=== PATIENT | male | born 1950 | race Caucasian/White ===

== ENCOUNTER 2023-01-24 06:54 | Day surgery (SDC) | payer MEDICARE ==
[2023-01-24] VITALS (16 sets, daily range): BP systolic 113–194; BP diastolic 63–78
[~2023-01-24] VITALS: Ht 180.3 cm; Wt 96.8 kg
[~2023-01-24 06:54] MED LIST: MULVITA PO; Norco 5-325 Ta1 EACH PO; OMEP20ER PO; TAMS.4ER PO
--- NOTE | 2023-01-24 07:44 | NUR ---
Ambulatory in Day Surgery. History, Chart, Medications and Allergies reviewed before start of procedure. Lungs clear T/O to Auscultation. Patient confirms NPO status and agrees with scheduled surgery. Pre-Op teaching done. Pt verbalizes understanding. Patient States Post-Procedure ride home has been arranged WITH CHRISTOPHER.
--- NOTE | 2023-01-24 08:13 | NUR ---
01/24/23 0813 Harris Jennings HISTORY, CHART, MEDICATIONS AND ALLERGIES REVIEWED BEFORE START OF PROCEDURE. PATIENT CONFIRMS NPO STATUS AND AGREES WITH SCHEDULED PROCEDURE. 3-LEAD EKG REVIEWED WITH PHYSICIAN PRIOR TO START OF PROCEDURE. MONITOR INTACT WITH CONTINUOUS PULSE OXIMETRY,CAPNOGRAPHY, 3-LEAD EKG, INTERMITTENT BP. SUPPLEMENTAL O2 TO BE TITRATED THROUGHOUT PROCEDURE TO MAINTAIN O2 SATURATION ABOVE 90%. PATIENT DETERMINED TO BE ASA APPROPRIATE FOR PROPOFOL SEDATION PRIOR TO START OF PROCEDURE BY DR. ARORA.
--- NOTE | 2023-01-24 09:30 | NUR ---
DISCHARGE NOTE Discharge instructions reviewed with patient. Patient verbalizes understanding. Copy given to patient to take home. Discharged via wheelchair to private car for ride home.
== END 2023-01-24 09:16 | disposition home or self-care (01) ==
LOC: ORSCMMR 06:54 → ORD 08:00 → ORSCMMR 08:00
PROVIDERS: Internal Medicine Gastroenterology
PROC: 0DJD8ZZ Inspection of Lower Intestinal Tract, Via Natural or Artificial Opening Endoscopic (ICD-10-PCS; principal; 2023-01-24 08:00)
DX: Z12.11 Encounter for screening for malignant neoplasm of colon (principal); Z86.010 Personal history of colon polyps; Z85.51 Personal history of malignant neoplasm of bladder; K57.30 Diverticulosis of large intestine without perforation or abscess without bleeding; K21.9 Gastro-esophageal reflux disease without esophagitis; Z79.899 Other long term (current) drug therapy
CPT/HCPCS: J2704; J7120

== ENCOUNTER → 2024-07-24 | Outpatient (CLI) | payer MEDICARE ==
[2024-07-24 19:35] LABS: BASOPHILS ABSOLUTE AUTO 0.02 K/mm3 (0.00-0.23); BASOPHILS PERCENT AUTO 0 % (0-2); EOSINOPHILS ABSOLUTE AUTO 0.13 K/mm3 (0.00-0.68); EOSINOPHILS PERCENT AUTO 2 % (0-6); Hematocrit 39.9 % (37.0-53.0); Hemoglobin 13.7 g/dL (13.5-17.5); IMMATURE GRAN ABSOLUTE AUTO 0.02 K/mm3 (0.00-0.10); IMMATURE GRAN PERCENT AUTO 0 % (0-1); LYMPHOCYTES ABSOLUTE AUTO 1.32 K/mm3 (0.84-5.20); LYMPHOCYTES PERCENT AUTO 22 % (21-46); MONOCYTES ABSOLUTE AUTO 0.48 K/mm3 (0.16-1.47); MONOCYTES PERCENT AUTO 8 % (4-13); Mean Corpuscular HGB 31.4 pg (26.0-34.0); Mean Corpuscular HGB Conc 34.3 g/dL (31.5-36.5); Mean Corpuscular Volume 92 fL (80-100); Mean Platelet Volume 10.3 fL (9.1-12.4); NEUTROPHILS ABSOLUTE AUTO 4.01 K/mm3 (1.96-9.15); NEUTROPHILS PERCENT AUTO 67 % (41-73); Platelet Count 300 K/mm3 (150-400); RDW Coefficient Variation 11.8 % (11.7-14.2); RDW Standard Deviation 39.8 fL (35.1-46.3); Red Blood Cell Count 4.36 M/mm3 (4.30-5.90); White Blood Cell Count 5.98 K/mm3 (4.00-11.30)
[2024-07-24 20:06] LABS: Alanine Aminotransfer (ALT/SGP 20 U/L (12-78); Albumin, Blood 3.8 g/dL (3.4-5.0); Albumin/Globulin Ratio 1.2 (0.8-1.8); Alk Phos 56 U/L (50-136); Anion Gap 8 mmol/L (3-11); Aspartate Aminotrans (AST/SGOT 16 U/L (12-37); Bilirubin, Total 0.6 mg/dL (0.1-1.0); Blood Urea Nitrogen 25 mg/dL (8-24); CHOL/HDL RATIO 3.9; CO2, Blood 26 mmol/L (21-32); Calcium, Blood 8.6 mg/dL (8.5-10.1); Chloride, Blood 109 mmol/L (98-108); Cholesterol 149 mg/dL (50-200); Globulin, Blood 3.3 g/dL (2.2-4.0); Glucose, Blood 109 mg/dL (70-99); HDL Cholesterol 38 mg/dL (>39); LDL/HDL RATIO 2.5; Low Density Lipoprotein Chol 95 mg/dL (0-110); Potassium, Blood 4.5 mmol/L (3.5-5.5); Sodium, Blood 138 mmol/L (136-145); Total Protein, Blood 7.1 g/dL (6.4-8.2); Triglycerides 79 mg/dL (30-160); Very Low Density Lipoprot Chol 15 mg/dL (6-32)
[2024-07-24 20:10] LABS: Bun/Creatinine Ratio 22.5 (12.0-20.0); Creatinine, Blood 1.11 mg/dL (0.60-1.20); Glomerular Filtration Rate 70 (60-)
== END ==
LOC: LAB 18:19 → LAB SHORT 18:19
PROVIDERS: Nurse Practitioner Family
DX: I10 Essential (primary) hypertension (principal); E55.9 Vitamin D deficiency, unspecified
CPT/HCPCS: 80053; 80061; 82306; 84443; 85025